=== PATIENT | female | born 1965 | race Native Hawaiian/Other Pacific Islander ===

== ENCOUNTER 2016-10-06 09:44 | Emergency (ER) | payer OTHER ==
[2016-10-06 09:49] VITALS: TEMP 97.9
[2016-10-06] MEDS ORDERED: Aspirin 325 mg EC Tablets PO STA (10:18)
[2016-10-06 10:24] VITALS: RESP 18
[2016-10-06 10:30] LABS: BASO % 0.7 % (0.0-2.0); EOS # 0.1 K/uL (0.0-0.7); EOS % 1.8 % (0.0-4.0); LYMPH # 1.6 K/uL (1.0-4.3); LYMPH % 32.8 % (20.0-40.0); MEAN CELL VOLUME 84.5 fL (81.0-99.0); MEAN CORPUSCULAR HEMOGLOBIN 27.5 pg (27.0-31.0); MEAN CORPUSCULAR HGB CONC 32.6 g/dL (33.0-37.0); MEAN PLATELET VOLUME 9.5 fL (7.2-11.7); MONO # 0.3 K/uL (0.0-0.8); RED CELL DISTRIBUTION WIDTH 12.8 % (11.5-14.5)
[2016-10-06 10:39] LABS: CHLORIDE 99 mmol/L (98-107); SODIUM 141 mmol/L (132-148)
[2016-10-06 10:40] LABS: POTASSIUM 3.6 mmol/L (3.6-5.2)
[2016-10-06 10:42] LABS: ALB/GLOB RATIO 1.2 (1.0-2.1); ALKALINE PHOSPHATASE 54 U/L (38-126); AST/SGOT 23 U/L (14-36); BILIRUBIN,TOTAL 0.8 mg/dL (0.2-1.3); BLOOD UREA NITROGEN 14 mg/dL (7-17); CARBON DIOXIDE 30 mmol/L (22-30); GFR AFRICAN-AMERICAN > 60; GLUCOSE,RANDOM 105 mg/dL (65-105); TOTAL PROTEIN 8.1 g/dL (6.3-8.3)
[2016-10-06 10:43] LABS: ALT/SGPT 32 U/L (9-52); CALCIUM 9.3 mg/dl (8.6-10.4)
--- NOTE | 2016-10-06 10:47 | RAD ---
HISTORY: SOB COMPARISON: None available. TECHNIQUE: Chest, one view. FINDINGS: LUNGS: No focal consolidation. Please note that chest x-ray has limited sensitivity for the detection of pulmonary masses. PLEURA: No significant pleural effusion identified. No definite pneumothorax . CARDIOVASCULAR: The cardiomediastinal silhouette appears within normal limits of size. OSSEOUS STRUCTURES: No acute osseous abnormality identified. VISUALIZED UPPER ABDOMEN: Unremarkable. OTHER FINDINGS: None. IMPRESSION: No focal consolidation, significant pleural effusion, or definite pneumothorax identified.
[2016-10-06] MEDS ORDERED: Aspirin 325 mg EC Tablets PO ONE (10:56)
--- NOTE | 2016-10-06 10:57 | C.PDOC ---
History Of Present Illness Pt presents to the ED with complaints of intermittent left sided chest pain for the past 2 months, worse the last 2 days. Pain onset after exercising one day at the gym. Pt denies SOB, dizziness, palpitations, vomiting or any other complaints. Time Seen by Provider: 10/06/16 09:59 Chief Complaint (Nursing): Chest Pain History Per: Patient History/Exam Limitations: no limitations Onset/Duration Of Symptoms: Days, Intermittent Episodes Current Symptoms Are (Timing): Still Present Severity: Mild Quality: "Pain" Alleviating Factors: None Recent travel outside of the [place]: No Past Medical History Reviewed: Historical Data, Nursing Documentation, Vital Signs Vital Signs: Last Vital Signs Temp 97.9 F 10/06/16 09:45 Pulse 78 10/06/16 11:11 Resp 18 10/06/16 11:11 BP 134/80 10/06/16 11:11 Pulse Ox 99 10/06/16 11:17 Family History: States: Unknown Family Hx - Social History Hx Alcohol Use: No Hx Substance Use: No - Immunization History Hx Tetanus Toxoid Vaccination: No Hx Influenza Vaccination: No Hx Pneumococcal Vaccination: No Review Of Systems Except As Marked, All Systems Reviewed And Found Negative. Constitutional: Negative for: Fever, Chills Cardiovascular: Positive for: Chest Pain. Negative for: Palpitations Respiratory: Negative for: Shortness of Breath Gastrointestinal: Negative for: Vomiting Neurological: Negative for: Headache, Dizziness Physical Exam - Physical Exam Appears: Non-toxic, No Acute Distress Skin: Warm, Dry, No Rash Head: Atraumatic, Normacephalic Neck: Normal ROM, Supple Chest: Symmetrical Cardiovascular: Rhythm Regular, No Murmur Respiratory: No Rales, No Rhonchi, No Wheezing Gastrointestinal/Abdominal: Soft, No Tenderness Extremity: No Pedal Edema Extremity: Bilateral: Atraumatic Neurological/Psych: Oriented x3, Normal Speech ED Course And Treatment - Laboratory Results Result Diagrams: 10/06/16 10:26 10/06/16 10:26 Lab Interpretation: Normal (trop neg.) ECG: Interpreted By Me ECG Rhythm: Sinus Rhythm ECG Interpretation: Normal Rate From EC (BPM) O2 Sat by Pulse Oximetry: 99 (on room air) Pulse Ox Interpretation: Normal - Radiology CXR: Interpreted by Me CXR Interpretation: Yes: No Acute Disease - Other Rad CXR X-Ray: Viewed By Me, Read By Radiologist Interpretation: HISTORY: SOB. COMPARISON: None available. TECHNIQUE: Chest , one view. FINDINGS: LUNGS: No focal consolidation. Please note that chest x-ray has limited sensitivity for the detection of pulmonary masses. PLEURA: No significant pleural effusion identified. No definite pneumothorax . CARDIOVASCULAR: The cardiomediastinal silhouette appears within normal limits of size. OSSEOUS STRUCTURES: No acute osseous abnormality identified. VISUALIZED UPPER ABDOMEN: Unremarkable. OTHER FINDINGS: None. IMPRESSION: No focal consolidation, significant pleural effusion, or definite pneumothorax identified. Reevaluation Time: 11:16 Reassessment Condition: Improved Medical Decision Making Medical Decision Making: musculoskeletal L chest discomfort, likely related to minor strain from gym exercise 2 months ago. normal EKG/labs/d dimer. normal exercise tolerance (walks [address]) to work outpatient f/u PRN Disposition Doctor Will See Patient In The: Office Counseled Patient/Family Regarding: Studies Performed, Diagnosis - Disposition Referrals: [facility] [Outside] Disposition: HOME/ ROUTINE Disposition Time: 11:17 Condition: GOOD Additional Instructions: continue motrin 400-600 mg every 6 hours as needed Normal gymnasium routine Follow-up with your PMD as needed. Instructions: Costochondritis (ED) - Clinical Impression Clinical Impression: Chest discomfort
[2016-10-06 11:12] VITALS: PULSE 78
[2016-10-06 11:17] VITALS: O2SAT 99
[2016-10-06 11:27] VITALS: BP 134/80
--- NOTE | 2016-10-07 11:50 | CARD ---
APPROVED REPORT EKG Measurement Heart [id number] <Conclusion> Normal sinus rhythm Nonspecific ST abnormality Abnormal ECG
== END 2016-10-06 11:28 | disposition home or self-care (01) ==
LOC: C.ER 09:44
DX: R07.89 Other chest pain (principal)